=== PATIENT | male | born 1960 | race Caucasian/White ===

== ENCOUNTER → 2016-03-09 | Outpatient (CLI) | payer BC ==
[~2016-03-09] MED LIST: ADVIL 200MG TA200 MG PO; BENADRYL25 M1 PO; CARDI-OMEGA1000 MG PO; HEART BURN MED; MULTIPLE VITAMI1 CAP PO; NIACIN1 TAB PO; PRILOSEC 20MG20 MG PO; PROBIOTIC FORMU1 CAP PO; ZESTRIL 10MG10 MG PO; ZOCOR
== END ==
LOC: SUN.DIA 02-02 09:37
DX: E11.21 Type 2 diabetes mellitus with diabetic nephropathy (principal); E11.65 Type 2 diabetes mellitus with hyperglycemia; Z79.84 Long term (current) use of oral hypoglycemic drugs; E66.9 Obesity, unspecified; Z68.32 Body mass index [BMI] 32.0-32.9, adult; Z71.3 Dietary counseling and surveillance; E78.5 Hyperlipidemia, unspecified; I10 Essential (primary) hypertension
CPT/HCPCS: G0108

== ENCOUNTER → 2016-06-06 | Outpatient (CLI) | payer BC | LOC: SUN.DIA 12:16 | DX: E11.65 Type 2 diabetes mellitus with hyperglycemia (principal); E11.21 Type 2 diabetes mellitus with diabetic nephropathy; E66.9 Obesity, unspecified; Z68.32 Body mass index [BMI] 32.0-32.9, adult; Z71.3 Dietary counseling and surveillance; E78.5 Hyperlipidemia, unspecified; I10 Essential (primary) hypertension; G47.30 Sleep apnea, unspecified; K21.9 Gastro-esophageal reflux disease without esophagitis; Z85.820 Personal history of malignant melanoma of skin; Z85.828 Personal history of other malignant neoplasm of skin | CPT/HCPCS: G0108 ==

== ENCOUNTER → 2016-12-19 | Outpatient (CLI) | payer BC | LOC: SUN.DIA 11:02 | DX: E11.21 Type 2 diabetes mellitus with diabetic nephropathy (principal); E78.5 Hyperlipidemia, unspecified; I10 Essential (primary) hypertension; E66.9 Obesity, unspecified; Z68.32 Body mass index [BMI] 32.0-32.9, adult; Z71.3 Dietary counseling and surveillance | CPT/HCPCS: G0108 ==

== ENCOUNTER → 2021-08-19 | Outpatient (CLI) | payer BC | LOC: COL.VAS 09:50 | DX: M79.662 Pain in left lower leg (principal); M79.89 Other specified soft tissue disorders; Z96.652 Presence of left artificial knee joint ==

== ENCOUNTER → 2023-02-16 | Outpatient (REF) | payer BC ==
[2023-02-16 12:56] LABS: BAND 3 % (0-10); EOSINOPHIL 10 % (0-4); NEUTROPHILS 57 % (42.0-75.2); PLATELET ESTIMATE NORMAL (NORMAL)
[2023-02-16 12:57] LABS: LYMPHOCYTE 20 % (20.0-51.0)
== END ==
LOC: ZCOL.LAB 12:29
PROVIDERS: Family Medicine
DX: C43.4 Malignant melanoma of scalp and neck (principal)